=== PATIENT | female | born 1990 | race Caucasian/White ===

== ENCOUNTER → 2017-01-26 | Outpatient (CLI) | payer OTHER | LOC: FIMAGING 18:14 | PROVIDERS: ATTEND Family Medicine | DX: M79.661 Pain in right lower leg (principal); R20.0 Anesthesia of skin ==

== ENCOUNTER → 2017-03-09 | Outpatient (CLI) | payer OTHER ==
--- NOTE | 2017-03-13 18:57 | CPEEG ---
[f rep st] ELECTROENCEPHALOGRAM DATE OF STUDY: 03/09/2017 INTERPRETATION: Normal EEG during wakefulness and sleep. There were no potentially epileptogenic a bnormalities present in the recording. REPORT: This EEG contains 10-11 Hz alpha activity to the posterior head regions. The background ac tivity was normal and symmetric. There was no abnormal activation at rest, during photic stimulatio n, or hyperventilation. The patient became drowsy and fell asleep during the study. There was no a bnormal activation during drowsiness, sleep, or during times of arousal. /[id number]/MODL
== END ==
LOC: FCPNEURO 08:52
PROVIDERS: ATTEND Psychiatry & Neurology Neurology
DX: R20.2 Paresthesia of skin (principal)